=== PATIENT | female | born 1985 | race Caucasian/White ===

== ENCOUNTER 2025-09-05 14:28 | Emergency (ER) | payer BC ==
[~2025-09-05] VITALS: Ht 165.1 cm; Wt 62.1 kg
[2025-09-05 15:35] LABS: MEAN PLATELET VOLUME 10.2 FL (7.4-10.4); RED CELL DISTRIBUTION WIDTH 13.0 % (11.5-14.5)
[2025-09-05 15:59] LABS: CREATININE 0.76 MG/DL (0.40-0.90); TOTAL CARBON DIOXIDE 26.7 MMOL/L (24-32); eCRCL 89 ML/MIN; eGFR 85 ML/MIN
[2025-09-05 16:59] LABS: URINE HCG NEGATIVE (NEG)
[2025-09-05 17:01] LABS: LEUKOCYTE ESTERASE ,URINE NEGATIVE (Neg); NITRITES, URINE NEGATIVE (Neg); OCCULT BLOOD,URINE NEGATIVE (Neg)
--- NOTE | 2025-09-05 17:07 | Physician Documentation ---
History of Present Illness ~ Chief Complaint: Abdominal Pain Stated Complaint: ABD/BACK PAIN Time Seen by MD: 16:17 Mode of Arrival: POV HPI This is a 40-year-old female who presents with upper abdominal pain radiating to her back onset last night, patient reports no vomiting or diarrhea, patient reports that she does have history of gallbladder problems". Patient reports chills without fever. Patient reports pain without aggravating or palliating factors. Patient reports no other acute symptoms or concerns. Medication Reconciliation Allergies: Coded Allergies: No Known Allergies (Unverified , 09/05/25) Scheduled PRN ONDANSETRON ODT 4mg tablet (Ondansetron Odt), 1 TAB PO Q6H PRN PRN for nausea/vomiting Past Medical History Past Medical History: *GI/HEPATOBILIARY* (Not helpful follow up fatty liver disease) Review of Systems ROS As stated above in the HPI, otherwise all systems are reviewed and negative. Physical Exam Vital Signs: Temperature: 99.6, Source: Oral, Heart Rate: 109, Respiratory Rate: 18, BP: 126/71, Pulse Oximetry: 98, Weight: 62.100 Oxygen Flow Rate: 0 Physical Exam VITALS: Reviewed and as above. GENERAL: Alert, nontoxic appearing, no apparent distress. RESPIRATORY: No increased work of breathing, no respiratory distress, speaking in full clear sentences, lung sounds in all [place] CV: Regular rate and rhythm no murmur BACK: No CVA tenderness GI: Upper abdominal tenderness to palpation, lower abdomen nontender to palpation, soft, nondistended, no rebound, no guarding MUSCULOSKELETAL: SKIN: No abdominal ecchymosis Progress Results/Orders Results/Orders Orders - TAMARA CHONG Ultrasound Of Abdomen (09/05/25 16:30) Ct Abdomen Pelvis (09/05/25 18:45) Completed Orders - TAMARA CHONG Ultrasound Of Abdomen (09/05/25 16:30) Acetaminophen 325mg Tablet (Tylenol Tabl (09/05/25 18:30) Ct Abdomen Pelvis (09/05/25 18:45) Iohexol 300mg/Ml 100ml Inj. (Omnipaque-3 (09/05/25 18:36) Medications Received in ER Medications (Trade) Dose Ordered Sig/Magda Route PRN Reason Start Time Stop Time Status Last Admin Dose Admin (Tylenol tablet) 975 mg ONCE ONCE PO 09/05/25 18:30 09/05/25 18:31 DC 09/05/25 19:04 975 MG Vital Signs 09/05/25 09/05/25 09/05/25 09/05/25 14:33 16:44 16:47 19:30 Temp 99.6 Pulse 114 109 122 Resp 16 18 18 16 B/P (MAP) 139/77 126/71 (89) 112/61 (78) Pulse Ox 100 98 97 O2 Flow Rate 0 0 0 09/05/25 19:46 Temp 99.6 Pulse 121 Resp 18 B/P (MAP) 112/91 Pulse Ox 99 Laboratory Tests Test 09/05/25 15:16 09/05/25 16:15 White Blood Count 10.7 Red Blood Count 4.75 Hemoglobin 14.6 Hematocrit 43.1 Mean Corpuscular Volume 90.6 Mean Corpuscular Hemoglobin 30.7 Mean Corpuscular Hemoglobin Concent 33.9 Red Cell Distribution Width 13.0 Platelet Count 187 Mean Platelet Volume 10.2 Neutrophils (%) (Auto) 91.7 H Lymphocytes (%) (Auto) 4.3 L Monocytes (%) (Auto) 3.6 Eosinophils (%) (Auto) 0.1 Basophils (%) (Auto) 0.3 Neutrophils # (Auto) 9.8 H Lymphocytes # (Auto) 0.5 L Monocytes # (Auto) 0.4 Eosinophils # (Auto) 0.0 Basophils # (Auto) 0.0 CBC Comment Sodium Level 144 Potassium Level 3.9 Chloride Level 105 Carbon Dioxide Level 26.7 Anion Gap 12 Blood Urea Nitrogen 12 Creatinine 0.76 Estimated GFR/1.73 m2 85 BUN/Creatinine Ratio 15.8 Glucose Level 93 Calcium Level 9.1 Total Bilirubin 0.9 Aspartate Amino Transf (AST/SGOT) 17 Alanine Aminotransferase (ALT/SGPT) 21 Alkaline Phosphatase 43 L Total Protein 7.6 Albumin 4.3 Globulin 3.3 Albumin/Globulin Ratio 1.3 Lipase 32 Chemistry Comments Urine Specimen Description Cln catch midstream Urine Color Yellow Urine Clarity Clear Urine pH 6.5 Urine Specific [place] 1.010 Urine Protein Negative Urine Glucose (UA) Negative Urine Ketones Trace H Urine Occult Blood Negative Urine Nitrite Negative Urine Bilirubin Negative Urine Urobilinogen 0.2 Urine Leukocyte Esterase Negative Urine Culture Indicated Not ind Volume Urine Centrifuged 10 ml Urine HCG, Qualitative Negative Urine Comment EKG/XRAY/CT/US/VASC/MRI CT : Impression Exam: CT ABDOMEN PELVIS Exam: CT abdomen and pelvis with contrast dated [Order Date] CT CT ABDOMEN PE LVIS W/ IV CONTRAST History: Upper Abd Pain Comparison Study: US ULTRASOUND OF ABDOMEN on DOS: 09/05/25 Exam Date: 09/05/2025 06:42 PM Radiation Dose Information: CT Dose: CTDI volume is 9.5 mGy. Dose-length product is 457 mGy*cm Contrast: Type of contrast: Omnipaque-300 Contrast injected: 100 cc Contrast wasted: 0 cc TECHNIQUE: During the uneventful, intravenous administration of contrast material, multislice data acquisition was obtained through the abdomen and pelvis. The data set was subsequently reconstructed into axial images. Images were reviewed on a work station using a combination of axial and multiplanar using a variety of window levels and settings. Findings: Lower chest: Clear. Liver: Numerous subcentimeter low density foci too small to characterize. Biliary system: Probable gallbladder sludge is better seen on previous ultrasound. Spleen: Unremarkable Pancreas: Unremarkable. Adrenals: Unremarkable. Kidneys and ureters: Normal renal enhancement. No hydronephrosis Bowel: No obstruction. Nondilated tubular structure in the right lower quadrant likely appendix; its origin from cecum is not definitely seen but likely obscured by adjacent loops of small bowel. Bladder: Unremarkable Reproductive organs: No abnormal mass. Lymph nodes: Unremarkable. Peritoneum: Unremarkable Vessels: Patent major intra-abdominal vasculature. Bones and soft tissue: No aggressive osseous lesion IMPRESSION: No acute findings in the abdomen or pelvis. Numerous subcentimeter low density foci in the liver too small to characterize. Probable gallbladder sludge is better seen on previous ultrasound. Electronically Signed by:STEVEN MCCAULEY MD Date & Time: 09/05/251912 Dictated by: STEVEN MCCAULEY MD Dictation date and time: 09/05/251912 I have reviewed and agree with the radiology report. I have reviewed and interpreted the imaging as: No intraperitoneal free air, no air-fluid levels Ultrasound : Impression Exam: ULTRASOUND OF ABDOMEN Technique: Real-time ultrasound imaging of the abdomen was performed with sun scale and color Doppler. Indication: Upper Abd Pain Comparison: None Findings: Liver measures 18 cm. It is increased in echogenicity and echotexture without focal mass. Portal vein is normal in caliber and demonstrates normal hepatopetal flow. Gallbladder demonstrates cholelithiasis/sludge. There is no pericholecystic fluid. The wall thickness is normal. The common bile duct measures 3 mm. No intrahepatic biliary ductal dilatation. The right kidney measures 11. cm. The left kidney measures 10.6 cm. No hydronephrosis or sonographic evidence of nephrolithiasis. The visualized portion of the pancreas is unremarkable. Spleen measures 12.5 cm. The visualized portion of the IVC is unremarkable. Impression: Probable cholelithiasis/sludge. Recommend MRCP/ MRI abdomen to evaluate. Echogenic liver which can be seen with hepatic steatosis, cirrhosis. Hepatomegaly. Electronically Signed by:ALMA AGUILAR MD Date & Time: 09/05/251743 Dictated by: ALMA AGUILAR MD Dictation date and time: 09/05/251743 Medical Decision Making Additional information obtaine: N/A Findings This is a 40-year-old female who presented with upper abdominal pain radiating to her back onset last night, physical exam significant for tenderness to upper quadrants of abdomen, ultrasound the upper abdomen demonstrated sludge in the gallbladder without evidence of cholecystitis or choledocholithiasis, lab work was reassuring without significant abnormality, CT of abdomen and pelvis did not demonstrate acute intra abdominal process, discussed with the patient likely cause of abdominal pain as gallbladder sludge though not all possibilities ruled out, with careful decision-making patient will follow up with primary care provider for further evaluation outpatient. Patient was medicated for pain in the department reporting adequate decrease in pain, patient will be discharged with prescription for Zofran for nausea. Patient is otherwise well-appearing with remainder of physical exam benign and is hemodynamically stable and appropriate for outpatient follow up. Patient provided careful return to care precautions, follow up instructions, and home care instructions which she verbalized understanding of. Diff Dx GI Bleed:Consideration: Include: Diverticulosis, Diverticulitis, Esophageal varicies, Gastritis, Inflammatory BD, PUD Diff Dx Pain:Considerations: Include: AAA, -Complete, - Incomplete, -Inevitable, -Missed, -Threatened, Abruptio placentae, Appendicitis, Bowel obstruction, Cholangitis, Cholecystitis, Cholelithasis, Constipation, Diverticular disease, Dysmenorrhea, Ectopic , Esophageal rupture, Gastritis/PUD, Gastroenteritis, Inflammatory BD, Ischemic bowel, Ovarian cyst/torsion, Pancreatitis, PID, Porphyria, Urinary obstruction, Urinary tract infection, Urolithiasis Diff Dx N/V/D:Considerations: Include: Appendicitis, Bowel obstruction, Dehydration, DKA, Diarrhea - bacterial, Diarrhea - parasitic, Diarrhea - viral, Diverticulitis, Diverticulosis, Electrolyte imbalance, Food poisoning, GE reflux, GI bleed, Hypovolemia, Hypotension, Inflammatory BD, Impaction, Pancreatitis, , PUD, Renal failure, Urolithiasis, Urinary obstruction, UTI Diff Dx Rectal:Considerations: Unlikely: Fissure, Fistula, Foreign body, Impaction, Perirectal abscess, Rectal prolapse, Subcutaneous abscess, Thrombosed hemorrhoid, Ulcer, UTI, Other Departure Time of Disposition: 19:35 Disposition: 01 HOME / SELF CARE / HOMELESS Impression: Primary Impression: Abdominal pain Qualified Codes: R10.10 - Upper abdominal pain, unspecified Condition: Improved Discharge Instructions: Abdominal Pain (Nonspecific) Additional Instructions: Unfortunately there was no clear cause of your abdominal pain, it is reassuring that your pain decreased somewhat with the Tylenol, continue to use Tylenol and or ibuprofen as needed for pain. Please use the prescribed Zofran as needed for for nausea and vomiting. Please follow up with your primary care provider in the next few days. Please return to the emergency department for any new or worsening concerning symptoms including but not limited to if you develop fever, if you have persistent vomiting, or if the pain travels to new areas. Referrals: NO PRIMARY CARE PROVIDER (PCP) Prescriptions ONDANSETRON ODT 4mg tablet (ONDANSETRON ODT) 4 Mg Tab.rapdis 1 TAB PO Q6H PRN PRN for nausea/vomiting for 4 Days, #16 TAB 0 Refills Prov: TAMARA CHONG 09/05/25 Education Educated: Patient Educated regarding: diagnosis, treatment, prognosis, need for follow up Signature Scribe Signature: No scribe Attestation: The note accurately reflects work and decisions made by me.JOSE LUIS Guidry 09/06/25 00:34 TAMARA CHONG Sep 05, 2025 17:07
[2025-09-05 17:11] LABS: UA COLLECTION TYPE CLN CATCH MIDSTREAM
--- NOTE | 2025-09-05 17:41 | RADIOLOGY REPORT ---
Technique: Real-time ultrasound imaging of the abdomen was performed with grayscale and color Doppler. Indication: Upper Abd Pain Comparison: None Findings: Liver measures 18 cm. It is increased in echogenicity and echotexture without focal mass. Portal vein is normal in caliber and demonstrates normal hepatopetal flow. Gallbladder demonstrates cholelithiasis/sludge. There is no pericholecystic fluid. The wall thickness is normal. The common bile duct measures 3 mm. No intrahepatic biliary ductal dilatation. The right kidney measures 11. cm. The left kidney measures 10.6 cm. No hydronephrosis or sonographic evidence of nephrolithiasis. The visualized portion of the pancreas is unremarkable. Spleen measures 12.5 cm. The visualized portion of the IVC is unremarkable. Impression: Probable cholelithiasis/sludge. Recommend MRCP/ MRI abdomen to evaluate. Echogenic liver which can be seen with hepatic steatosis, cirrhosis. Hepatomegaly.
[2025-09-05] MEDS ORDERED: iohexol 300mg/ml 100ml inj. ONE (18:36)
--- NOTE | 2025-09-05 19:16 | RADIOLOGY REPORT ---
Exam: CT abdomen and pelvis with contrast dated [Order Date] CT CT ABDOMEN PELVIS W/ IV CONTRAST History: Upper Abd Pain Comparison Study: US ULTRASOUND OF ABDOMEN on DOS: 09/05/25 Exam Date: 09/05/2025 06:42 PM Radiation Dose Information: CT Dose: CTDI volume is 9.5 mGy. Dose-length product is 457 mGy*cm Contrast: Type of contrast: Omnipaque-300 Contrast injected: 100 cc Contrast wasted: 0 cc TECHNIQUE: During the uneventful, intravenous administration of contrast material, multislice data acquisition was obtained through the abdomen and pelvis. The data set was subsequently reconstructed into axial images. Images were reviewed on a work station using a combination of axial and multiplanar using a variety of window levels and settings. Findings: Lower chest: Clear. Liver: Numerous subcentimeter low density foci too small to characterize. Biliary system: Probable gallbladder sludge is better seen on previous ultrasound. Spleen: Unremarkable Pancreas: Unremarkable. Adrenals: Unremarkable. Kidneys and ureters: Normal renal enhancement. No hydronephrosis Bowel: No obstruction. Nondilated tubular structure in the right lower quadrant likely appendix; its origin from cecum is not definitely seen but likely obscured by adjacent loops of small bowel. Bladder: Unremarkable Reproductive organs: No abnormal mass. Lymph nodes: Unremarkable. Peritoneum: Unremarkable Vessels: Patent major intra-abdominal vasculature. Bones and soft tissue: No aggressive osseous lesion IMPRESSION: No acute findings in the abdomen or pelvis. Numerous subcentimeter low density foci in the liver too small to characterize. Probable gallbladder sludge is better seen on previous ultrasound.
[2025-09-05] MEDS ORDERED: ONDA-243 PO (19:36)
[2025-09-05 19:46] VITALS: BP 112/91; PULSE 121; RESP 18; TEMP 99.6; O2SAT 99
== END 2025-09-05 19:47 | disposition home or self-care (01) ==
LOC: ER 14:29
DX: R10.10 Upper abdominal pain, unspecified (principal)
CPT/HCPCS: 36415; 74177; 76700; 80053; 81003; 81025; 83690; 85025; 99285; Q9967